=== PATIENT | female | born 1980 | race Caucasian/White ===

== ENCOUNTER 2016-10-30 22:12 | Emergency (ER) | payer OTHER ==
[~2016-10-30] VITALS: Ht 174 cm; Wt 116.4 kg
[~2016-10-30 22:12] MED LIST: BUPR-79 PO; HYDR-4330 PO; LEVE250T PO
[2016-10-30 22:21] VITALS: TEMP 36.9; Ht 174 cm; Wt 116.4 kg
[2016-10-30] MEDS ORDERED: OXYCODONE HCL IR 5 MG TAB (IMMEDIATE RELEASE) PO STA (22:33)
[2016-10-30] MEDS ORDERED: IBUP-1277 PO (22:42)
[2016-10-30] MEDS ORDERED: ASPI-563 PO (22:43)
[2016-10-30] MEDS ORDERED: AMOXICIL/CLAVU 875MG HOME PACK PO ONE (22:45)
[2016-10-30] MEDS ORDERED: LIDO/EPINEPHRINE/SOD BICARB 20 ML VIAL INFIL ONE (22:45)
[2016-10-30] MEDS ORDERED: ONDANSETRON 4MG OD TAB PO ONE (22:45)
--- NOTE | 2016-10-30 22:57 | DIAGNOSTIC IMAGING REPORT ---
LEFT FOREARM 2 VIEWS ROUTINE CLINICAL HISTORY: LEFT, DOG BITE trauma COMPARISON: None. DISCUSSION: Considerable soft tissue edema as well as soft tissue disruption is present in the region of the mid ulna. No well-defined acute bony abnormality. Small old avulsion from the ulnar styloid. IMPRESSION: Soft tissue edema and disruption. No acute bony abnormality. The above report was generated using voice recognition software. It may contain grammatical, syntax or spelling errors. Electronically signed by: Mario Meredith M.D. 10/30/2016 10:55 PM Dictated Date/Time: 10/30/2016 10:54 PM
[2016-10-30] MEDS ORDERED: AMOX875T PO (23:47)
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
[2016-10-30 23:57] VITALS: BP 108/80; PULSE 90; O2SAT 99
[2016-10-31] MEDS ORDERED: OXYCODONE IR HOME PACK PO ONE
== END 2016-10-30 23:57 | disposition home or self-care (01) ==
LOC: C.EDB 22:13 → C.EDC 23:57
DX: S51.852A Open bite of left forearm, initial encounter (principal); W54.0XXA Bitten by dog, initial encounter; Y92.009 Unspecified place in unspecified non-institutional (private) residence as the place of occurrence of the external cause; F17.210 Nicotine dependence, cigarettes, uncomplicated

== ENCOUNTER 2016-11-10 11:07 | Emergency (ER) | payer OTHER ==
[~2016-11-10] VITALS: Ht 172.7 cm; Wt 117.3 kg
[~2016-11-10 11:07] MED LIST changes: +AMOX875T PO; +ASPI-563 PO; +IBUP-1277 PO
[2016-11-10 11:10] VITALS: TEMP 36.5; Ht 172.7 cm; Wt 117.3 kg
[2016-11-10] MEDS ORDERED: VENL150T33 PO (11:22)
[2016-11-10] MEDS ORDERED: ST J1CAP PO (11:22)
[2016-11-10] MEDS ORDERED: VANCOMYCIN INJ 1,000 MG in SODIUM CHLORIDE 0.9% 250ML 250 ML IV STA (11:34)
[2016-11-10] MEDS ORDERED: CEFTRIAXONE SOD INJ 1 GM ADDVIAL IV STA (11:34)
--- NOTE | 2016-11-10 11:44 | EMERGENCY ROOM VISIT NOTE ---
History Report prepared by Rashiibravi: Mandie Lwe Under the Supervision of: Dr. Justen Galvin M.D. First contact with patient: 11:18 Chief Complaint: WOUND INFECTION Stated Complaint: PAIN, RED AND WARMNESS TO WOUND Nursing Triage Summary: Pt presents with wound to left forearm from a dog bite almost two weeks ago, sutures in place. Pt reports increased pain and redness, worse over the past 3- 4 days. Chills. Pt reports increased feeling of being tired and states, "There were pus sacks yesterdays." Pt states she finished course of oral abx. History of Present Illness The patient is a 36 year old female who presents to the Emergency Room with complaints of constant left arm pain from a dog bite wound that occurred 10 days ago. The patient notes that the pain is severe and has been increasing over the past 10 days. She describes the pain as stinging and tightness that hurts to the touch.The patient denies any fevers. She also notes that she was supposed to get the stitches out this week and that she was on antibiotics for the bite. She also noticed some pus discharge from the the site yesterday. The patient notes that she is on hydrocodone for a back injury and has been taking it to help with her symptoms from the wound and has found minimal relief. She has no allergies to any antibiotics. Source of History: patient Onset: 10 days ago Position: arm (left) Quality: other (stinging and tightness) Timing: constant Associated Symptoms: No fevers Review of Systems All systems have been listed, reviewed, and are negative other than those previously mentioned. Please see Additional Medical History Sheet. Past Medical & Surgical Medical Problems: (1) Closed head injury (2) DDD (degenerative disc disease), lumbar (3) HNP (herniated nucleus pulposus), lumbar (4) No Known Active Medical Problems (5) Rib contusion Surgical Problems: (1) H/O section (2) History of back surgery Family History FHx: cancer FHx: heart disease FHx: hypertension FHx: lung disease Social History Smoking Status: Never Smoker Smokeless Tobacco Use: Yes Alcohol Use: none Housing Status: lives with family Current/Historical Medications Scheduled Aspirin-Caffeine (Elise Back & Body 500-32.5 mg), 1 TAB PO UD Bupropion (Wellbutrin Sr), 150 MG PO BID Cephalexin Monohydrate (Keflex), 500 MG PO QID Levetiracetam (Keppra), 500 MG PO BID Margareth's Wort (Dilkon Perf (St Rowan Wort), 600 MG PO TID Sulfa/Trimethoprim (Bactrim Ds 800MG/160MG), 1 TAB PO BID Venlafaxine Hcl (Venlafaxine Hcl Er), 150 MG PO DAILY Scheduled PRN Hydrocodone-Acetaminophen (Lortab 5-325 mg), 1 TAB PO BID PRN for Pain Allergies Coded Allergies: Latex1 -Allergic Contact Dermititis (Verified Allergy, Unknown, RASH, 10/30) GETS RASH FROM RUBBER GLOVES Oxycodone (Verified Adverse Reaction, Unknown, GI SYMPTOMS, 09/14/15) Physical Exam Vital Signs Date Time Temp Pulse Resp B/P (MAP) Pulse Ox O2 Delivery O2 Flow Rate FiO2 11/10/16 14:39 75 16 124/65 98 Room Air 11/10/16 13:05 76 18 109/65 99 Room Air 11/10/16 11:10 36.5 82 18 126/82 98 Room Air Physical Exam GENERAL: Patient awake, alert, oriented x 3. Patient follows commands. Patient does not appear toxic. Patient is adequately hydrated and well- nourished. Patient is in mild distress. SKIN: No pallor, cyanosis or rash. Horseshoe shaped sutured laceration on the left arm with significant erythema and swelling. HEENT: Normal head, pupils equal, reactive to light and accommodation. LUNGS: Clear to auscultation. No wheezes, no rales, no rhonchi. HEART: No murmurs. No gallops. No rubs ABDOMEN: No masses, no rebound, no hepatomegaly or splenomegaly. EXTREMITIES: Horseshoe shaped sutured laceration on the left arm with significant erythema and swelling. HEENT: Normal head, pupils equal, reactive to light and accommodation. NEUROLOGIC: Cranial nerves II-XII within normal limits. No gross motor sensory function deficits. Intact distally. Medical Decision & Procedures Laboratory Results 11/10/16 11:48 Red Blood Count 4.05, Mean Corpuscular Volume 92.1, Mean Corpuscular Hemoglobin 29.1, Mean Corpuscular Hemoglobin Concent 31.6, Mean Platelet Volume 9.7, Neutrophils (%) (Auto) 68.7, Lymphocytes (%) (Auto) 19.2, Monocytes (%) (Auto) 7.1, Eosinophils (%) (Auto) 4.2, Basophils (%) (Auto) 0.6, Neutrophils # (Auto) 4.45, Lymphocytes # (Auto) 1.24, Monocytes # (Auto) 0.46, Eosinophils # (Auto) 0.27, Basophils # (Auto) 0.04 11/10/16 11:48 Test 11/10/16 11:48 White Blood Count 6.47 K/uL (4.8-10.8) Red Blood Count 4.05 M/uL (4.2-5.4) Hemoglobin 11.8 g/dL (12.0-16.0) Hematocrit 37.3 % (37-47) Mean Corpuscular Volume 92.1 fL (80-100) Mean Corpuscular Hemoglobin 29.1 pg (25-34) Mean Corpuscular Hemoglobin Concent 31.6 g/dl (32-36) Platelet Count 214 K/uL (130-400) Mean Platelet Volume 9.7 fL (7.4-10.4) Neutrophils (%) (Auto) 68.7 % Lymphocytes (%) (Auto) 19.2 % Monocytes (%) (Auto) 7.1 % Eosinophils (%) (Auto) 4.2 % Basophils (%) (Auto) 0.6 % Neutrophils # (Auto) 4.45 K/uL (1.4-6.5) Lymphocytes # (Auto) 1.24 K/uL (1.2-3.4) Monocytes # (Auto) 0.46 K/uL (0.11-0.59) Eosinophils # (Auto) 0.27 K/uL (0-0.5) Basophils # (Auto) 0.04 K/uL (0-0.2) RDW Standard Deviation 45.2 fL (36.4-46.3) RDW Coefficient of Variation 13.5 % (11.5-14.5) Immature Granulocyte % (Auto) 0.2 % Immature Granulocyte # (Auto) 0.01 K/uL (0.00-0.02) Anion Gap 6.0 mmol/L (3-11) Est Creatinine Clear Calc Drug Dose 135.5 ml/min Estimated GFR () 114.2 Estimated GFR (Non- 98.5 BUN/Creatinine Ratio 23.6 (10-20) Calcium Level 8.6 mg/dl (8.5-10.1) Laboratory results as stated above per my review. Medications Administered Medications (Trade) Dose Ordered Sig/Madison Route Start Time Stop Time Status Last Admin Dose Admin Oxycodone/ Acetaminophen (Percocet 5-325mg Tab) 1 tab NOW ONCE PO 11/10/16 11:45 11/10/16 11:46 DC 11/10/16 11:51 1 TAB Ceftriaxone Sodium (Rocephin Inj) 1 gm NOW STAT IV 11/10/16 11:34 11/10/16 11:39 DC 11/10/16 11:51 1 GM Vancomycin HCl 1000 mg/Sodium Chloride 270 ml @ 125 mls/hr NOW STAT IV 11/10/16 11:34 11/10/16 13:43 DC 11/10/16 12:12 125 MLS/HR Laboratory results as stated above per my review. ED Course 1119: Past medical records reviewed. The patient was evaluated in room C9. A complete history and physical examination was performed. 1134: Vancomycin HCL 1000mg/Sodium Chloride 270 ml @ 125 mls/hr, Rocephin Inj 1 gm IV. 1145: Oxycodone/Acetaminophen 1 tab PO 1425: I reevaluated the patient and she is resting comfortably. 1451: I reevaluated the patient and she states that her tetanus is up to date. 1458: Upon reevaluation, the patient appeared to have improvement of her symptoms. I discussed today's findings with the patient. She verbalized agreement of the treatment plan. The patient was discharged home. Medical Decision Differential diagnosis includes but is not limited to: dog bite, cellulitis, abscess. Patient has some swelling around the previously sutured. I removed half of the sutures. I attempted to express some pus very little discharge from the wound. It was cultured. In the meantime, she was placed on Rocephin and vancomycin. She will be discharged on Bactrim and Keflex. The patient's return in 24 hours to make sure that it is improving. She understands that she may require admission if it is not improving. [place] Drug Monitoring Program Search Results: patient reviewed within database, no issues identified Medication Reconcilliation Current Medication List: was personally reviewed by me Blood Pressure Screening Patient's blood pressure: Normal blood pressure Blood pressure disposition: Did not require urgent referral Impression Primary Impression: Wound infection Scribe Attestation The scribe's documentation has been prepared under my direction and personally reviewed by me in its entirety. I confirm that the note above accurately reflects all work, treatment, procedures, and medical decision making performed by me. Departure Information Dispostion Home / Self-Care Prescriptions Cephalexin Monohydrate (Keflex) 500 Mg Cap 500 MG PO QID, #40 CAP Prov: Justen Galvin M.D. 11/10/16 Sulfa/Trimethoprim (Bactrim Ds 800MG/160MG) Tab 1 TAB PO BID, #20 TAB Prov: Justen Galvin M.D. 11/10/16 Referrals Juan Burgos M.D. (PCP) Forms HOME CARE DOCUMENTATION FORM, IMPORTANT VISIT INFORMATION, WORK / SCHOOL INSTRUCTIONS Patient Instructions My [facility] Additional Instructions One Bactrim twice a day. Please take both doses by the time you go to bed tonight. 1 Keflex 4 times a day. Please take all 4 doses by the time and go to bed tonight. Recheck here tomorrow before 3 PM.
[2016-11-10] MEDS ORDERED: OXYCODONE/ACETAMINOPHEN 5-325 TAB PO ONE (11:45)
[2016-11-10 12:19] LABS: BASO % 0.6 %; BASO ABS # 0.04 K/uL (0-0.2); COMPLETE YES; EOS % 4.2 %; HEMATOCRIT 37.3 % (37-47); IG% 0.2 %; LYMPH % 19.2 %; LYMPH ABS # 1.24 K/uL (1.2-3.4); MEAN CELL VOLUME 92.1 fL (80-100); MEAN CORPUSCULAR HEMOGLOBIN 29.1 pg (25-34); MEAN CORPUSCULAR HGB CONC 31.6 g/dl (32-36); MEAN PLATELET VOLUME 9.7 fL (7.4-10.4); MONO % 7.1 %; NEUT % 68.7 %; PLATELET COUNT 214 K/uL (130-400); RED BLOOD COUNT 4.05 M/uL (4.2-5.4); WHITE BLOOD COUNT 6.47 K/uL (4.8-10.8)
[2016-11-10 12:38] LABS: BUN/CREATININE RATIO 23.6 (10-20); CALCIUM 8.6 mg/dl (8.5-10.1); CREATININE 0.78 mg/dl (0.60-1.20); POTASSIUM 4.1 mmol/L (3.5-5.1)
[2016-11-10 14:39] VITALS: BP 124/65; PULSE 75; O2SAT 98
[2016-11-10] MEDS ORDERED: SULF800T23 PO (14:51)
[2016-11-10] MEDS ORDERED: CEPH500C PO (14:51)
--- NOTE | 2016-11-15 11:07 | Pharmacy Progress Note ---
ED Pharmacist Culture FollowUp Date of Service: Nov 15, 2016. Patient's surface wound cx at dog bite site is growing rate quantity of CoN Staph - no sensitivity to follow. She was placed on Keflex 500mg PO QID + Bactrim DS 1 PO BID x 10 days which should provide adequate coverage of most pathogens associated with dog bite skin/soft tissue infection. This cx growing CoN Staph could reflect skin carloz - but if pathogenic the current abx tx are reasonable choices.
== END 2016-11-10 15:04 | disposition home or self-care (01) ==
LOC: C.EDB 11:09 → C.EDC 15:04
DX: T81.4XXA Infection following a procedure, initial encounter (principal); X58.XXXA Exposure to other specified factors, initial encounter; Z48.02 Encounter for removal of sutures; M51.26 Other intervertebral disc displacement, lumbar region; Z87.828 Personal history of other (healed) physical injury and trauma; Z98.890 Other specified postprocedural states; Z79.82 Long term (current) use of aspirin; Z79.899 Other long term (current) drug therapy; Z88.5 Allergy status to narcotic agent; Z91.040 Latex allergy status; Z80.9 Family history of malignant neoplasm, unspecified; Z82.49 Family history of ischemic heart disease and other diseases of the circulatory system

== ENCOUNTER 2019-04-04 06:39 | Inpatient (IN) ==
--- NOTE | 2019-03-28 15:42 | Anesthesiology Consultation ---
Date of Service March 28, 2019 Assessment & Plan Chart Review Chart Review: Acceptable Risk for Surgery and Patient NOT seen in Pre Admission Testing History Surgery Operation Date: 04/04/19 08:15 Proposed Procedures p L4-L5, L5-S1 Removal Implants; L4-L5, L5-S1 Posterior Lumbar Interbody Fusion - Mazin Butler DO Height/Weight Height: 5 ft 8.5 in Weight: 98.883 kg Allergies Allergy/AdvReac Type Severity Reaction Status Date / Time No Known Allergies Allergy Verified 03/05/19 11:03 Medications Home Medications Medication Instructions Recorded Confirmed Last Taken bupropion HCl 200 mg PO BID 08/19/18 03/05/19 08/19/18 hydrocodone-acetaminophen [[place]] 1 tab PO Q6H PRN #5 tab 08/19/18 Unknown metformin 1,000 mg PO BID 08/19/18 03/05/19 08/19/18 gabapentin 600 mg PO UD 03/05/19 03/05/19 Unknown lisdexamfetamine [Vyvanse] 70 mg PO QAM 03/05/19 03/05/19 Unknown oxycodone-acetaminophen 1 tab PO Q8H PRN 03/05/19 03/05/19 Unknown hydrocodone 10 mg-acetaminophen 1 tab PO Q6H PRN #40 tab 03/12/19 Unknown 325 mg tablet hydrocodone 10 mg-acetaminophen 1 tab PO Q6H PRN #40 tab 03/19/19 Unknown 325 mg tablet Past Medical History Medical History Anxiety and depression Bipolar disorder DDD (degenerative disc disease), lumbar (Resolved) HNP (herniated nucleus pulposus), lumbar (Resolved) Post traumatic stress disorder Restless leg syndrome Temporomandibular joint disorder Past Family History Family History Other No significant family history Past Surgical History Surgical History Fusion of spine LUMBAR History of bilateral tubal ligation History of section X 2 History of discectomy LUMBAR History of tonsillectomy and adenoidectomy Social History Smoking Status: Current every day smoker tobacco type: cigarettes Smoking cigarettes per day: 20 CIG DAILY Do You Dip or Chew Tobacco: No Hx Alcohol Use: No Hx Substance Use: No substance use type: does not use Testing Laboratory Results 03/25/19 WBC 6.12 H/H 12.4/38.7 PLATELETS 211 Chest X-Ray Date: 03/25/19 Findings: + NAD
--- NOTE | 2019-04-02 12:50 | History and Physical Report ---
DATE OF ADMISSION: 04/04/2019 CHIEF COMPLAINT: Back pain, lower extremity difficulty, paresthesias, numbness and tingling and poor ability to sit, walk and ambulate. HISTORY OF PRESENT ILLNESS: She has failure of her spinal implants. She is having revision surgery that I will be performing on her on the . It will be approximately 2 hours in length, I estimate. PAST MEDICAL HISTORY: Positive for anxiety, depression, bipolar disorder, restless legs syndrome. PAST SURGICAL HISTORY: Includes multiple spine surgeries, tubal ligation, discectomy on the spine. FAMILY HISTORY: Not significant. SOCIAL HISTORY: Minimal smoker. Feels safe at home. No alcohol abuse. REVIEW OF SYSTEMS: CONSTITUTIONAL: She denies any fevers, sweats, chills, any bowel and bladder issues. No pain, cough, or sneeze. CARDIAC: No chest pain, no shortness of breath. ABDOMEN: Denies any nausea, vomiting. Denies urgency, frequency. MUSCULOSKELETAL: Admits to back and lower extremity difficulty. OBJECTIVE: VITAL SIGNS: Stable, blood pressure 122/77, pulse 70, respiratory rate 16, afebrile. BMI of 32. HEENT: Pupils react to light and accommodation. Ear, nose and throat clear. CARDIAC: Normal S1, S2. LUNGS: Clear. ABDOMEN: Soft and nontender. Bowel sounds present. MUSCULOSKELETAL: She has pain with straight leg raising on the right, pain with straight leg raising on the left. She has pain with flexion and extension. No upper motor neuron issues. IMAGES: Demonstrate a back out of hardware. IMPRESSION: Failed hardware, lumbar spine. PLAN: Includes instructions, precautions, and surgery scheduling. She is being scheduled on 04/04/2019 for removal of implants L4-S1 and a PLIF L5-S1.
[~2019-04-04 06:39] MED LIST changes: -AMOX875T PO; -ASPI-563 PO; -BUPR-79 PO; +CEFAZOLIN 2000MG 2,000 MG/15 ML SYR IV SCH; -HYDR-4330 PO; -IBUP-1277 PO; -LEVE250T PO; +LR 15ML/HR IV SCH; +SODIUM CHLORIDE 0.9% 1,000 ML IV SCH
[2019-04-04] MEDS ORDERED: fentaNYL citrate 100 MCG/2 ML VIAL ONE (07:39)
[2019-04-04] MEDS ORDERED: MIDAZOLAM HCL 1 MG/ML 2ML VIAL ONE (07:39)
[2019-04-04] MEDS ORDERED: DEXAMETHASONE SOD INJ 4 MG/ML VIAL ONE (08:00)
[2019-04-04] MEDS ORDERED: ePHEDrine sulfate 50 MG/ML SYR ONE (08:00)
[2019-04-04] MEDS ORDERED: LARYING-O-JET KIT (LTA) ONE (08:00)
[2019-04-04] MEDS ORDERED: NEOSTIGMINE METHYLSULFATE 5 MG/5 ML SYR ONE (08:00)
[2019-04-04] MEDS ORDERED: GLYCOPYRROLATE 0.2 MG/ML VIAL ONE (08:00)
[2019-04-04] MEDS ORDERED: PROPOFOL IV EMULSION 10 MG/ML 20 ML VIAL IV ONE (08:00)
[2019-04-04] MEDS ORDERED: LIDOCAINE HCL 2% 2 ML VIAL/AMP(20MG/ML) INFIL ONE (08:00)
[2019-04-04] MEDS ORDERED: CISATRACURIUM BESYLATE IV SOLN 2 MG/ML 10 ML VIAL IV ONE (08:00)
[2019-04-04] MEDS ORDERED: ONDANSETRON INJ 2 MG/ML 2 ML VIAL ONE (08:00)
[2019-04-04] MEDS ORDERED: VANCOMYCIN HCL 1000MG/20ML VIAL ONE (08:04)
[2019-04-04] MEDS ORDERED: GELATIN SPONGE SZ 100 ONE (08:05)
[2019-04-04] MEDS ORDERED: THROMBIN FOR SOLN 20000 UNIT KIT ONE (08:05)
[2019-04-04] MEDS ORDERED: BACITRACIN INJ 50,000 UNIT VIAL ONE (08:05)
--- NOTE | 2019-04-04 08:11 | History & Physical Bridge Note ---
Date of Service April 04, 2019 History & Physical Bridge Note I have examined the patient, reviewed the History & Physical and in the interval since the performance of the History & Physical I have noted the following changes of clinical significance: no changes noted
[2019-04-04] MEDS ORDERED: HYDROmorphone INJ 2 MG/ML SYR/VIAL ONE (08:51)
[2019-04-04] MEDS ORDERED: LABETALOL HCL IV 5 MG/ML 20ML IV PRN (11:16)
[2019-04-04] MEDS ORDERED: PROMETHAZINE HCL 12.5 MG in SODIUM CHLORIDE 0.9% 50 ML IV PRN ×2 (11:16→12:55)
[2019-04-04] MEDS ORDERED: ATROPINE SULFATE 0.1 MG/ML 10ML SYR IV PRN (11:16)
[2019-04-04] MEDS ORDERED: ONDANSETRON INJ 2 MG/ML 2 ML VIAL IV PRN ×2 (11:16→12:55)
[2019-04-04] MEDS ORDERED: NALOXONE HCL 0.4 MG/1 ML VIAL/CARP IV PRN ×2 (11:16→12:55)
[2019-04-04] MEDS ORDERED: ePHEDrine sulfate 50 MG/ML AMP IV PRN (11:16)
[2019-04-04] MEDS ORDERED: FLUMAZENIL 0.1 MG/1 ML 10 ML VIAL IV PRN (11:16)
--- NOTE | 2019-04-04 11:22 | Post Operative Brief Note ---
PG Immediate Post Op with CF Date of Surgery April 04, 2019 Pre & Post Diagnosis Operation Date: 04/04/19 08:15 Pre-Op Diagnosis: Loosening Spinal Hardware Post-Op Diagnosis: Loosening Spinal Hardware I identified the patient and participated in the time-out.: Yes Procedure Operation Date: 04/04/19 08:15 Actual Procedures p Removal L4-S1 Instrumentation, Lumbar fusion L4-S1, use of Infuse and Duraseal(Not Applicable) - Mazin Butler DO Surgeon Mazin Butler DO Delivery Assistant Viktor minor Estimated Blood Loss 50 Findings Consistent with Post-Op Diagnosis Drains Junior Catheter and Hemovac Drain Disposition Accompanied Patient To Recovery: Yes Overlapping Procedure I was immediately available: during the entire case.
--- NOTE | 2019-04-04 11:30 | Operative Report ---
PG Post Operative Report Pre & Post Diagnosis Operation Date: 04/04/19 08:15 Pre-Op Diagnosis: Loosening Spinal Hardware; migration of interbody device Post-Op Diagnosis: Loosening Spinal Hardware; migration of interbody device I identified the patient and participated in the time-out.: Yes Procedure Operation Date: 04/04/19 08:15 Actual Procedures p Removal L4-S1 Instrumentation, Lumbar fusion L4-S1, use of Infuse and Duraseal(Not Applicable) - Mazin Butler DO Actual procedure: Removal of spinal implants L4, L5, S1 Next: Decompression of neural elements L4-L5 and S1 Next: Removal interbody device at L4-5 Next: Instrumentation L4-L5 and S1 lumbar spine. Combination of pedicle screws and a stephen [employer] Next: Bone grafting of the procedure and fusion L4-L5 and S1. 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 Junior catheter administered. Placed prone on the [place] table scrubbed and prepped and draped sterile. Timeout taken. Made a skin incision fashion incision carefully meticulously got down to the neural elements dissecting out over the spinous processes transverse processes and facet joints. We put in a deep self-retaining retractor. First we took out the spinal implants from L4-S1 we took out the screws at L4-L5 and S1 Next decompression of the involved elements compressing L4-5 L5-S1 foraminotomies partial facetectomies Then decompress the neural elements retracted the dura very carefully off the spinal implant or interbody cage at L4-5 interval. I did not see any true nerve injury nor I do not believe we injured her in the process. We decompressed the for nerve root fiber nerve root and S1 Then instrumented the spine safely getting pedicle screws and at sacrum L5 and L4 we went with larger screws 7.5 mm at the sacral area and the L5 area the L4 pedicle screw excepted a 6.5 mm diameter screw. We then irrigated thoroughly. We then grafted out of the transverse processes from L4-L5 and the sacrum Bone graft products used: Morselized autograft. And a product called infuse which is an osteogenic protein. We then areas over a Hemovac drain with 1 Vicryl suture we also closed over vancomycin powder 2-0 Vicryl used on the subcuticular layer over vancomycin powder. Nylon used on the skin surface Dressing applied and the patient returned to PACU improved stable condition No apparent operative complications Blood loss less than 100 cc Wound use was morselized autograft and infuse. I attest to the content of the Intraoperative Record and any orders documented therein. Any exceptions are noted below.
[2019-04-04] MEDS ORDERED: HYDROmorphone INJ 1 MG/ML SYRINGE ONE (11:34)
[2019-04-04] MEDS: HYDROmorphone INJ 1 MG/ML SYRINGE IV PRN ×4 (11:35→12:04)
[2019-04-04] MEDS ORDERED: KETOROLAC 30 MG/ML VIAL IV ONE (11:59)
[2019-04-04] MEDS ORDERED: KETOROLAC 30 MG/ML VIAL ONE (12:01)
--- NOTE | 2019-04-04 12:04 | Fluoroscopy Report ---
FL spine 1V any level HISTORY: 38 years-old Female L4-S1 REMOVAL IMPLANTS L4-S1 POSTERIOR LUMBAR INTERBODY FUSI number spi nal fusion COMPARISON: Lumbar spine radiographs 02/13/2019 TECHNIQUE: One lateral spot fluoroscopic image of the lumbar spine was obtained utilizing 10.3 second s fluoroscopy time FINDINGS: Posterior interbody stephen and screw fusion hardware extends from L4-S1. Spondylitic spurring is noted w ith alignment appearing satisfactory on this single image. IMPRESSION: Fluoroscopic assistance as above. Please see operative report for further details. ACT 112: Negative or not required by law. The above report was generated using voice recognition software. It may contain grammatical, syntax o r spelling errors. Electronically signed by: Ruperto Martínez M.D. 04/04/2019 12:02 PM
--- NOTE | 2019-04-04 12:18 | Anesthesiology Progress Note ---
Date of Service April 04, 2019 Anesthesia Post Procedure Vital Signs Vital Signs: Temp Pulse Pulse Resp BP BP Pulse Ox 04/04/19 11:22 36.6 C 78 14 114/63 100 04/04/19 07:15 37.1 C 81 20 132/82 96 Pain Intensity Lower Back: Pain Intensity: 8 Transfer of Care Handoff Completed per policy Notes Mental Status: alert / awake / arousable Patient Amnestic to Procedure: Yes Nausea / Vomiting: adequately controlled Pain: adequately controlled Airway Patency, RR, SpO2: stable & adequate BP & HR: stable & adequate Hydration State: stable & adequate Anesthetic Complications: no major complications apparent
[2019-04-04] MEDS ORDERED: DO NOT ADMINISTER FLU VACCINE PRN (12:55)
[2019-04-04] MEDS ORDERED: bisacodyL 10 MG SUPP PR PRN (12:55)
[2019-04-04] MEDS ORDERED: MAGNESIUM HYDROXIDE SUSP 30 ML UDC PO PRN (12:55)
[2019-04-04] MEDS ORDERED: FAMOTIDINE 20 MG TAB PO PRN (12:55)
[2019-04-04] MEDS ORDERED: ONDANSETRON 4 MG OD TAB PO PRN (12:55)
[2019-04-04] MEDS ORDERED: HYDROmorphone INJ 0.5 MG/0.5 ML SYR IV PRN (12:55)
[2019-04-04] MEDS ORDERED: ALUMINUM/MAGNESIUM SUSP 30 ML UDC PO PRN (12:55)
[2019-04-04] MEDS ORDERED: SOD PHOSPHATE/SOD BIPHOSPHATE ENEMA 132 ML BTL PR PRN (12:55)
[2019-04-04] MEDS ORDERED: DO NOT ADMINISTER PNEUMOCOCCAL VACCINE PRN (12:55)
[2019-04-04] MEDS ORDERED: ACETAMINOPHEN 1,000 MG/100 ML VIAL IV PRN (12:55)
[2019-04-04] MEDS: GABAPENTIN 600 MG TAB PO SCH ×2 (13:45→20:30)
[2019-04-04] MEDS: SODIUM CHLORIDE 0.9% 1000ML 1,000 ML IV SCH (13:46)
[2019-04-04] MEDS: OXYCODONE HCL IR 5 MG TAB (IMMEDIATE RELEASE) PO PRN ×2 (15:39→21:38)
[2019-04-04] MEDS: CEFAZOLIN 2000MG 2,000 MG/15 ML SYR IV SCH (16:11)
[2019-04-04] MEDS: KETOROLAC 30 MG/ML VIAL IV SCH (18:43)
[2019-04-04] MEDS: DOCUSATE SODIUM/SENNA 50/8.6MG TAB PO SCH (20:31)
[2019-04-05] MEDS: KETOROLAC 30 MG/ML VIAL IV SCH ×3 (00:03→12:26)
[2019-04-05] MEDS: CEFAZOLIN 2000MG 2,000 MG/15 ML SYR IV SCH (00:03)
[2019-04-05] MEDS: SODIUM CHLORIDE 0.9% 1000ML 1,000 ML IV SCH (02:23)
[2019-04-05] MEDS: OXYCODONE HCL IR 5 MG TAB (IMMEDIATE RELEASE) PO PRN ×4 (03:19→18:36)
[2019-04-05] MEDS: POLYETHYLENE (MIRALAX) 17 GM PACK PO SCH ×3 (06:07→17:16)
--- NOTE | 2019-04-05 07:13 | Orthopedic Progress Note ---
Date of Service April 05, 2019 Assessment & Plan (1) Spinal stenosis of lumbar region at multiple levels: Assessment: Revision spinal surgery. Doing well still in the short run Plan: Up and ambulatory today short walks is all that is needed. Tentative discharge home tomorrow Subjective Moderate complaints of pain paresthesias. Pain is controlled Physical Exam Physical Exam: Vital signs stable afebrile moves all 4 extremities Lungs clear Cardiac regular Results & Data Vital Signs (Past 12 Hours) Vital Signs Temp Pulse Pulse Resp BP Pulse Ox 04/05/19 03:20 74 124/74 04/05/19 03:14 37.0 C 74 16 98/55 L 98 04/04/19 22:59 36.9 C 66 16 102/64 98 04/04/19 19:51 36.6 C 68 16 107/69 97 PG Care Time/CCT Total # of Minutes Spent Total Time Spent with Patient: Total time spent is greater than 50% in coordination of care (as documented) at patient's floor/unit and/or counseling patient:
--- NOTE | 2019-04-05 07:51 | Anesthesiology Progress Note ---
Date of Service April 05, 2019 Anesthesia Post Procedure Vital Signs Vital Signs: Temp Pulse Pulse Pulse Pulse Resp BP 04/05/19 07:20 36.6 C 74 15 04/05/19 03:20 74 04/05/19 03:14 37.0 C 74 16 04/04/19 22:59 36.9 C 66 16 04/04/19 19:51 36.6 C 68 16 04/04/19 15:51 36.4 C L 70 16 04/04/19 14:25 77 16 04/04/19 13:42 64 16 04/04/19 13:10 36.6 C 91 H 16 04/04/19 12:40 36.6 C 66 18 04/04/19 12:26 70 14 04/04/19 12:25 67 14 108/57 L 04/04/19 12:22 36.6 C 04/04/19 12:21 65 14 04/04/19 12:20 65 14 106/62 04/04/19 12:16 70 14 04/04/19 12:15 67 14 106/59 L 04/04/19 12:11 87 17 04/04/19 12:10 94 H 16 90/72 L 04/04/19 12:06 73 14 04/04/19 12:05 71 14 108/56 L 04/04/19 12:01 68 14 04/04/19 12:00 90 16 117/64 04/04/19 11:56 78 14 04/04/19 11:55 72 14 107/56 L 04/04/19 11:51 69 14 04/04/19 11:50 67 14 106/55 L 04/04/19 11:48 73 14 111/60 04/04/19 11:46 81 14 04/04/19 11:45 78 14 90/46 L 04/04/19 11:41 88 13 04/04/19 11:40 76 14 111/59 L 04/04/19 11:36 82 14 04/04/19 11:35 84 11 L 115/64 04/04/19 11:31 86 12 04/04/19 11:30 77 14 114/62 04/04/19 11:26 93 H 17 04/04/19 11:25 75 15 107/65 04/04/19 11:23 77 14 04/04/19 11:22 36.6 C 78 78 14 114/63 BP Pulse Ox 04/05/19 07:20 128/72 98 04/05/19 03:20 124/74 04/05/19 03:14 98/55 L 98 04/04/19 22:59 102/64 98 04/04/19 19:51 107/69 97 04/04/19 15:51 107/69 98 04/04/19 14:25 100/57 L 98 04/04/19 13:42 109/69 99 04/04/19 13:10 106/50 L 100 04/04/19 12:40 104/63 97 04/04/19 12:26 98 04/04/19 12:25 98 04/04/19 12:22 100 04/04/19 12:21 99 04/04/19 12:20 99 04/04/19 12:16 99 04/04/19 12:15 99 04/04/19 12:11 100 04/04/19 12:10 98 04/04/19 12:06 99 04/04/19 12:05 99 04/04/19 12:01 99 04/04/19 12:00 100 04/04/19 11:56 99 04/04/19 11:55 98 04/04/19 11:51 99 04/04/19 11:50 100 04/04/19 11:48 99 04/04/19 11:46 100 04/04/19 11:45 100 04/04/19 11:41 100 04/04/19 11:40 100 04/04/19 11:36 99 04/04/19 11:35 99 04/04/19 11:31 100 04/04/19 11:30 99 04/04/19 11:26 100 04/04/19 11:25 100 04/04/19 11:23 100 04/04/19 11:22 114/63 100 Pain Intensity Lower Back: Pain Intensity: 4 Notes Mental Status: alert / awake / arousable and participated in evaluation Patient Amnestic to Procedure: Yes Nausea / Vomiting: adequately controlled Pain: adequately controlled Airway Patency, RR, SpO2: stable & adequate BP & HR: stable & adequate Hydration State: stable & adequate Anesthetic Complications: no major complications apparent and Pt Satisfied with anesthetic care
[2019-04-05] MEDS: BuPROPion XL 300 MG TABCR PO SCH (08:30)
[2019-04-05] MEDS: GABAPENTIN 600 MG TAB PO SCH ×3 (08:30→20:56)
[2019-04-05] MEDS ORDERED: Nursing to Pharmacy Communication ONE (14:09)
[2019-04-05] MEDS: METFORMIN HCL 500 MG TAB PO SCH (16:29)
[2019-04-05] MEDS: DOCUSATE SODIUM/SENNA 50/8.6MG TAB PO SCH (20:56)
[2019-04-06] MEDS: POLYETHYLENE (MIRALAX) 17 GM PACK PO SCH ×2 (01:00→06:37)
[2019-04-06] MEDS: OXYCODONE HCL IR 5 MG TAB (IMMEDIATE RELEASE) PO PRN ×3 (01:06→10:35)
[2019-04-06] MEDS: METFORMIN HCL 500 MG TAB PO SCH (07:40)
[2019-04-06] MEDS: GABAPENTIN 600 MG TAB PO SCH (07:40)
[2019-04-06] MEDS: BuPROPion XL 300 MG TABCR PO SCH (07:41)
--- NOTE | 2019-04-08 08:08 | Discharge Summary ---
HOSPITAL COURSE: Deborah had a very complicated revision lumbar surgery. She has done well. Minimal complaints. Basically uneventful course. No chest pain, shortness of breath, or confusion. Neurologically, she still has a deficit, but seems to be recovering. Images not required. ASSESSMENT: Status post reconstructive spine surgery. PLAN: We will discharge her home here this morning. Instructions, precautions and educations provided. Followup examination in the office in approximately 2 weeks.
== END 2019-04-06 10:44 | disposition home or self-care (01) | DRG 460 ==
LOC: ASU 06:39 → 3E 11:27

== ENCOUNTER 2019-05-29 12:15 | Observation (INO) ==
[2019-05-29] MEDS ORDERED: KETOROLAC 30 MG/ML VIAL IV STA (13:09)
[2019-05-29] MEDS ORDERED: SODIUM CHLORIDE 0.9% 1000ML 1,000 ML IV ONE ×2 (13:09→17:37)
--- NOTE | 2019-05-29 13:25 | Emergency Department Note ---
History of Present Illness General Chief complaint: Back Injury/Pain Stated complaint: REF BY DR, SURGERY ON Apr, LEAKING FLUID History of Present Illness Maximum Pain Intensity: 9 This patient is a 39-year-old female who presents to the emergency department ambulatory by private vehicle for evaluation of a substance leaking out of her back. This is been intermittently happening over the last 2 to 3 weeks.it has been particularly bad over the last day. The patient has a history of lumbar spine surgery on April 04 of this year. She was doing exercises today when her physical therapist noticed the drainage. She was sent here for evaluation. The patient also notes throbbing headaches, particularly when she goes from a lying to a sitting position. She is also felt intermittently dizzy. No fever or chills. No numbness or tingling. She is continuing to have pain into her left leg, which is not new. Home Medications Home Medications Medication Instructions Recorded Confirmed Type bupropion HCl 300 mg PO QAM 08/19/18 05/29/19 History metformin 1,000 mg PO BID 08/19/18 05/29/19 History Vyvanse 70 mg PO QAM 03/05/19 05/29/19 History methylprednisolone 4 mg tablets in 4 mg PO UD #1 pkt 05/28/19 05/29/19 Rx a dose pack gabapentin 800 mg PO TID 05/29/19 05/29/19 History vilazodone [Viibryd] 40 mg PO DAILY 05/29/19 05/29/19 History Allergies Allergy/AdvReac Type Severity Reaction Status Date / Time No Known Allergies Allergy Verified 05/29/19 14:53 Past Med/Surg History Medical History Anxiety and depression Bipolar disorder DDD (degenerative disc disease), lumbar (Resolved) HNP (herniated nucleus pulposus), lumbar (Resolved) Post traumatic stress disorder Restless leg syndrome Temporomandibular joint disorder Surgical History Fusion of spine LUMBAR History of bilateral tubal ligation History of section X 2 History of discectomy LUMBAR History of tonsillectomy and adenoidectomy Family History Other No significant family history Social History Preferred Language: [place] Communication Ability: Effective Costumer Assistant Required: No Beliefs That Will Affect Care: None marital status: Current Living Situation: Family Feels Safe at Home: Yes Smoking Status: Current every day smoker Tobacco Type: cigarettes ; Cigarettes Per Day: 20 CIG DAILY ; Second Hand Exposure: Yes ; Hx Alcohol Use: No Hx Substance Use: No Review of Systems A total of 10 systems reviewed and were otherwise negative Physical Exam Vital Signs Vital Signs - 24 hr 05/29/19 12:24 05/29/19 14:50 05/29/19 17:39 Temperature 36.9 C Temperature Source Oral Pulse Rate 88 Pulse Rate [Right Finger] 77 68 Respiratory Rate 16 20 18 Respiratory Effort / Characteristics Non-Labored Spontaneous Non-Labored Spontaneous Respiratory Depth Normal Normal Respiratory Pattern Regular Blood Pressure 123/64 Blood Pressure [Left Arm] 127/67 109/70 Blood Pressure Mean 83 Blood Pressure Mean [Left Arm] 87 83 Pulse Oximetry 100 97 98 Oxygen Delivery Method Room Air Room Air Sepsis Recent Fever Within 48 Hours No Sepsis New/Unexplained Change in Mental Status No Sepsis Action Taken by Nursing No Action Required 05/29/19 19:21 Temperature Temperature Source Pulse Rate Pulse Rate [Right Finger] Respiratory Rate Respiratory Effort / Characteristics Respiratory Depth Respiratory Pattern Blood Pressure Blood Pressure [Left Arm] Blood Pressure Mean Blood Pressure Mean [Left Arm] Pulse Oximetry Oxygen Delivery Method Room Air Sepsis Recent Fever Within 48 Hours Sepsis New/Unexplained Change in Mental Status Sepsis Action Taken by Nursing Constitutional WD/WN, vitals as above Eyes EOM intact bilaterally ENMT external ear and nose normal, oropharynx normal Neck trachea midline Respiratory normal respiratory effort, lungs clear to auscultation Cardiovascular RRR, no murmur, no edema Gastrointestinal (Abdomen) normal bowel sounds, soft, nontender, no hepatosplenomegaly Musculoskeletal no cyanosis or clubbing, extremities motor strength 5/5 Skin no rashes, warm and dry There is a 1 mm pinpoint defect in the skin noted over the incision on the lumbar spine area. There is a clear substance noted leaking from the area. Neurologic Alert and oriented x3. No focal motor deficits. Psychiatric Acting appropriately Course Course Patient was seen and examined Vital signs including blood pressure were reviewed medications list was verified with patient Labs were obtained, and a saline lock was established Case was discussed with radiology, orthopedics, my attending physician and neurosurgery at [facility]. The case was also discussed with pharmacy. [facility] do not feel comfortable [facility] the patient. I again reached out to the patient's orthopedic surgeon. He agreed to admit the patient for further work-up and treatment. I was called to the bedside as the patient was becoming itchy and had an erythematous rash after starting the IV antibiotics. These were immediately stopped. Her symptoms improved. She was given Solu-Medrol and Benadryl IV. She remained stable while in the emergency department. Consultations Consultation #1: Dr. Butler Consultation #2: Dr. Santiago-neuro [facility] Consultation #3: [facility] Administered Medications Gadobutrol (Gadavist 65ml) 8 ml IV ONCE PRN PRN Reason: Interaction Checking Stop: 06/02/19 14:29 Last Admin: 05/29/19 14:31 Dose: 8 ml Documented by: [id number] Vancomycin HCl 1,750 mg/ (Sodium Chloride) 535 mls @ 200 mls/hr IV NOW ONE Stop: 05/29/19 20:17 Last Infusion: 05/29/19 18:48 Dose: 0 mls/hr Documented by: [id number] Admin: 05/29/19 18:38 Dose: 200 mls/hr Documented by: [id number] Discontinued Medications Diphenhydramine HCl (Benadryl) 50 mg IV NOW STA Stop: 05/29/19 14:43 Last Admin: 05/29/19 14:48 Dose: 50 mg Documented by: [id number] Diphenhydramine HCl (Benadryl) 25 mg IV NOW STA Stop: 05/29/19 19:16 Last Admin: 05/29/19 19:19 Dose: 25 mg Documented by: Sodium Chloride (Nss 1000ml) 1,000 mls @ 999 mls/hr IV .Q1H1M ONE Stop: 05/29/19 14:09 Last Infusion: 05/29/19 17:39 Dose: 0 mls/hr Documented by: [id number] Admin: 05/29/19 13:55 Dose: 999 mls/hr Documented by: [id number] Cefepime HCl (Maxipime) 2,000 mg in 20 mls @ 5 mls/min IV NOW STA; Protocol Stop: 05/29/19 17:40 Last Admin: 05/29/19 18:38 Dose: 5 mls/min Documented by: [id number] Sodium Chloride (Nss 1000ml) 1,000 mls @ 999 mls/hr IV .Q1H1M ONE Stop: 05/29/19 18:37 Last Admin: 05/29/19 18:38 Dose: 999 mls/hr Documented by: [id number] Ketorolac Tromethamine (Toradol) 30 mg IV NOW STA Stop: 05/29/19 13:10 Last Admin: 05/29/19 13:55 Dose: 30 mg Documented by: [id number] Methylprednisolone (Solumedrol) 125 mg IV NOW STA Stop: 05/29/19 19:17 Last Admin: 05/29/19 19:20 Dose: 125 mg Documented by: Morphine Sulfate (Morphine Sulfate) 4 mg IV NOW STA Stop: 05/29/19 17:40 Last Admin: 05/29/19 18:38 Dose: 4 mg Documented by: [id number] Medical Decision Making Home Medications Current Medication List: was personally reviewed by me Laboratory Data Attestation: I reviewed the patient's lab results. Result diagrams: 05/29/19 13:13 05/29/19 13:13 Lab Results 05/29/19 05/29/19 05/29/19 Range/Units 13:12 13:12 13:13 WBC 5.04 (4.8-10.8) K/uL RBC 4.50 (4.2-5.4) M/uL Hgb 12.4 (12.0-16.0) g/dL Hct 38.8 (37-47) % MCV 86.2 (80-100) fL MCH 27.6 (25-34) pg MCHC 32.0 (32-36) g/dL RDW Std Deviation 45.0 (36.4-46.3) fL RDW Coeff of Pietro 14.4 (11.5-14.5) % Plt Count 267 (130-400) K/uL MPV 10.1 (7.4-10.4) fL Immature Gran % (Auto) 0.0 % Neut % (Auto) 50.6 % Lymph % (Auto) 36.5 % [place] % (Auto) 9.7 % Eos % (Auto) 1.8 % Baso % (Auto) 1.4 % Immature Gran # (Auto) 0.00 (0.00-0.02) K/uL Neut # (Auto) 2.55 (1.4-6.5) K/uL Lymph # (Auto) 1.84 (1.2-3.4) K/uL [place] # (Auto) 0.49 (0.11-0.59) K/uL Eos # (Auto) 0.09 (0-0.5) K/uL Baso # (Auto) 0.07 (0-0.2) K/uL Sodium (136-145) mmol/L Potassium (3.5-5.1) mmol/L Chloride (98-107) mmol/L Carbon Dioxide (21-32) mmol/L Anion Gap (3-11) BUN (7-18) mg/dl Creatinine (0.6-1.2) mg/dl Est Cr Clr Drug Dosing ml/min Est GFR ( Amer) Est GFR (Non-Af Amer) BUN/Creatinine Ratio (10-20) Glucose (70-99) mg/dl Calcium (8.5-10.1) mg/dl Total Bilirubin (0.2-1) mg/dl AST (15-37) U/L ALT (12-78) U/L Alkaline Phosphatase (45-117) U/L Total Protein (6.4-8.2) gm/dl Albumin (3.4-5.0) gm/dl Globulin (2.5-4.0) gm/dl Albumin/Globulin Ratio (0.9-2) Urine Color Yellow Urine Appearance Clear (Clear) Urine pH 5.0 (4.5-7.5) Ur Specific [place] 1.016 (1.000-1.030) Urine Protein Negative (Negative) Urine Glucose (UA) Negative (Negative) Urine Ketones Negative (Negative) Urine Blood Negative (Negative) Urine Nitrite Negative (Negative) Urine Bilirubin Negative (Negative) Urine Urobilinogen Negative (Negative) Ur Leukocyte Esterase Negative (Negative) POC Ur Test NEG (NEG) 05/29/19 Range/Units 13:13 WBC (4.8-10.8) K/uL RBC (4.2-5.4) M/uL Hgb (12.0-16.0) g/dL Hct (37-47) % MCV (80-100) fL MCH (25-34) pg MCHC (32-36) g/dL RDW Std Deviation (36.4-46.3) fL RDW Coeff of Pietro (11.5-14.5) % Plt Count (130-400) K/uL MPV (7.4-10.4) fL Immature Gran % (Auto) % Neut % (Auto) % Lymph % (Auto) % [place] % (Auto) % Eos % (Auto) % Baso % (Auto) % Immature Gran # (Auto) (0.00-0.02) K/uL Neut # (Auto) (1.4-6.5) K/uL Lymph # (Auto) (1.2-3.4) K/uL [place] # (Auto) (0.11-0.59) K/uL Eos # (Auto) (0-0.5) K/uL Baso # (Auto) (0-0.2) K/uL Sodium 139 (136-145) mmol/L Potassium 3.6 (3.5-5.1) mmol/L Chloride 109 H (98-107) mmol/L Carbon Dioxide 25 (21-32) mmol/L Anion Gap 5.0 (3-11) BUN 13 (7-18) mg/dl Creatinine 0.77 (0.6-1.2) mg/dl Est Cr Clr Drug Dosing 111.3 ml/min Est GFR ( Amer) 113.5 Est GFR (Non-Af Amer) 97.9 BUN/Creatinine Ratio 17.2 (10-20) Glucose 81 (70-99) mg/dl Calcium 9.2 (8.5-10.1) mg/dl Total Bilirubin 0.2 (0.2-1) mg/dl AST 8 L (15-37) U/L ALT 15 (12-78) U/L Alkaline Phosphatase 89 (45-117) U/L Total Protein 7.7 (6.4-8.2) gm/dl Albumin 3.5 (3.4-5.0) gm/dl Globulin 4.2 H (2.5-4.0) gm/dl Albumin/Globulin Ratio 0.8 L (0.9-2) Urine Color Urine Appearance (Clear) Urine pH (4.5-7.5) Ur Specific [place] (1.000-1.030) Urine Protein (Negative) Urine Glucose (UA) (Negative) Urine Ketones (Negative) Urine Blood (Negative) Urine Nitrite (Negative) Urine Bilirubin (Negative) Urine Urobilinogen (Negative) Ur Leukocyte Esterase (Negative) POC Ur Test (NEG) Imaging Data Attestation: I personally reviewed and interpreted this imaging study as follows: Radiologist's Impression: MRI with and without lumbar spine IMPRESSION: 1. Postsurgical changes as described above 2. 33 x 19 x 17 mm fluid collection abutting the posterior aspect of the thecal sac at the L 4-5 level 3. 13 x 2.4 x 1.5 centimeter midline subcutaneous fluid collection. There is an equivocal incomplete tract connecting this fluid collection with the fluid collection posterior to the thecal sac. Diagnostic considerations therefore include postsurgical seroma versus pseudomeningocele. ACT 112: Negative or not required by law. Electronically signed by: Rogelio Dominguez M.D. 05/29/2019 2:49 PM Dictated: 05/29/19 1439 Transcribed: 05/29/19 1439 [facility] Narrative Differential diagnosis: CSF leak, infectious etiology, seroma, positional headaches, tension headache, migraine headache, among others This patient is a 39-year-old female who presents to the emergency department complaining of a substance leaking from her back. On exam, she did have a pinpoint defect in the skin that appeared to be leaking a fairly clear subst ance. There is no surrounding erythema. The patient was afebrile. Given her history of recent surgery, a full work-up was performed including labs and imaging. Imaging was consistent with a possible pseudomeningocele versus seroma. This case was discussed with multiple providers as noted above. Her orthopedic surgeon recommended that the patient be transferred for neurosurgery. Neurosurgery at [facility] was consulted. They recommended transfer. Unfortunately, they did not have any beds this evening. For this reason, I reached out to the hospitalist service. They did not feel comfortable admitting the patient. Ultimately, the patient's orthopedic surgeon will observe the patient overnight. She will be covered with antibiotics. The patient was comfortable with this plan. She will ultimately be transferred for neurosurgical care. Impression & Plan Pseudomeningocele, acquired Discharge Plan Visit Data Chief Complaint: Back Injury/Pain Stated Complaint: REF BY DR, SURGERY ON Apr, LEAKING FLUID ED Provider: Joey Whittaker ED Midlevel Provider: Meryl Strauss Discharge Problem: Pseudomeningocele, acquired Patient Disposition: Transfer Acute Care Hospital Condition: Fair Forms Stand Alone Forms: My [facility] Prescriptions Prescriptions: No Action methylprednisolone 4 mg tablets,dose pack 4 mg PO UD Qty: 1 RF: 0 bupropion HCl 200 mg tablet sustained-release 12 hr 300 mg PO QAM RF: 0 metformin 1,000 mg tablet 1,000 mg PO BID RF: 0 Vyvanse 70 mg Capsule 70 mg PO QAM RF: 0 gabapentin 800 mg tablet 800 mg PO TID RF: 0 Viibryd 40 mg tablet 40 mg PO DAILY RF: 0 Referrals Referrals: Inge Whatley DO [Primary Care Provider] -
[2019-05-29 13:27] LABS: Basophils # (auto) 0.07 K/uL (0-0.2); Basophils % (auto) 1.4 %; Eosinophils # (auto) 0.09 K/uL (0-0.5); Eosinophils % (auto) 1.8 %; Hematocrit (blood only) 38.8 % (37-47); Hemoglobin 12.4 g/dL (12.0-16.0); Lymphocytes # (auto) 1.84 K/uL (1.2-3.4); Lymphocytes % (auto) 36.5 %; Mean Corpuscular Hemoglobin 27.6 pg (25-34); Mean Corpuscular Volume 86.2 fL (80-100); Mean Platelet Volume 10.1 fL (7.4-10.4); Monocytes # (auto) 0.49 K/uL (0.11-0.59); Monocytes % (auto) 9.7 %; Neutrophils # (auto) 2.55 K/uL (1.4-6.5); Neutrophils % (auto) 50.6 %; Platelet Count 267 K/uL (130-400); RDW Coefficient of Variation 14.4 % (11.5-14.5); White Blood Count 5.04 K/uL (4.8-10.8)
[2019-05-29 13:36] LABS: Appearance Urine Clear (Clear); Bilirubin Urine Negative (Negative); Blood Urine Negative (Negative); Color Urine Yellow; Glucose Urine UA Negative (Negative); Ketones Urine Negative (Negative); Leukocyte Esterase Urine Negative (Negative); Nitrite Urine Negative (Negative); Protein Urine Negative (Negative); Specific Gravity Urine 1.016 (1.000-1.030); Urobilinogen Urine Negative (Negative)
[2019-05-29 13:44] LABS: Albumin Level 3.5 gm/dl (3.4-5.0); BUN Creatinine Ratio 17.2 (10-20); Calcium 9.2 mg/dl (8.5-10.1); Creatinine Clr Calc Pharmacy 111.3 ml/min; Est GFR (African American) 113.5; Est GFR (Non-African American) 97.9; Potassium 3.6 mmol/L (3.5-5.1)
[2019-05-29 13:46] LABS: Albumin Globulin Ratio 0.8 (0.9-2); Bilirubin,Total 0.2 mg/dl (0.2-1); Globulin 4.2 gm/dl (2.5-4.0); Total Protein 7.7 gm/dl (6.4-8.2)
[2019-05-29] MEDS ORDERED: GADOBUTROL 65ML VIAL IV PRN (14:30)
[2019-05-29] MEDS ORDERED: DiphenhydrAMINE HCL 50 MG/ML VIAL IV STA ×2 (14:42→19:15)
--- NOTE | 2019-05-29 14:51 | Magnetic Resonance Report ---
MR lumbar spine wo/w con CLINICAL HISTORY: drainage from lumbar area sx 04/04/19 TECHNIQUE: Sagittal and axial T1, T2 and STIR images were obtained. Images were acquired before and a fter the administration of 8 cc of intravenous Gadavist. COMPARISON STUDY: March 2015 OBSERVATIONS: The vertebral bodies and posterior elements appear intact. There is no abnormal bony signal present t o suggest a marrow replacement process. L1-2: No disc protrusions or extrusions. No evidence of spinal canal or neural foraminal compromise. L2-3: No disc protrusions or extrusions. No evidence of spinal canal or neural foraminal compromise. L3-4: There is an annular fissure and mild disc bulge. There is no significant spinal or foraminal st enosis L4-5: There are postsurgical changes of a discectomy and interbody fusion. There are right-sided L4 a nd L5 pedicle screws. There are postlaminectomy changes. There is enhancing soft tissue surrounding t he right L5 nerve root consistent with postsurgical epidural fibrosis. There is a fluid collection lo cated posterior to the thecal sac measuring 33 x 19 x 17 mm. There is no significant spinal stenosis L5-S1: There are postsurgical changes of a discectomy and interbody fusion. There are postlaminectomy changes. There is a right S1 pedicle screw. There is no significant spinal or foraminal stenosis. Th ere is postsurgical enhancement of the posterior soft tissues. There is a fluid collection posterior to the thecal sac as well as described on the prior level. The conus medullaris and cauda equina appear normal. There is a subcutaneous rim-enhancing midline fluid collection measuring 13 x 2.4 x 1.5 cm. It is not possible to determine whether this is infected. This appears to communicate with the skin. There is also a linear track which comes in close continuity with the fluid collection located posterior to th e thecal sac. This reason a pseudomeningocele cannot be excluded. IMPRESSION: 1. Postsurgical changes as described above 2. 33 x 19 x 17 mm fluid collection abutting the posterior aspect of the thecal sac at the L 4-5 leve l 3. 13 x 2.4 x 1.5 centimeter midline subcutaneous fluid collection. There is an equivocal incomplete tract connecting this fluid collection with the fluid collection posterior to the thecal sac. Diagnos tic considerations therefore include postsurgical seroma versus pseudomeningocele. ACT 112: Negative or not required by law. Electronically signed by: Rogelio Dominguez M.D. 05/29/2019 2:49 PM
[2019-05-29] MEDS ORDERED: VANCOMYCIN CONSULT ACTIVE PRN ×2 (17:37→19:42)
[2019-05-29] MEDS ORDERED: CEFEPIME 2,000 MG/20 ML VIAL IV STA (17:37)
[2019-05-29] MEDS ORDERED: VANCOMYCIN HCL 1,750 MG in SODIUM CHLORIDE 0.9% 500 ML IV ONE (17:37)
[2019-05-29] MEDS ORDERED: MoRPHine SULFATE 4 MG/ML 1 ML CARP\\VIAL IV STA (17:39)
--- NOTE | 2019-05-29 18:41 | Emergency Department Note ---
ED Visit Note Patient was seen by our PA/MOTION STUDY ENGINEER. I was involved in the patient's care and did evaluate the patient myself. I was involved in the care throughout the ER stay. Patient is being transferred to [facility]. We are awaiting bed assignment. The patient may need to be hospitalized at our facility until a bed becomes available. The appropriate paperwork for transfer was completed and signed .
[2019-05-29] MEDS ORDERED: methylPREDNISolone 125 MG/2 ML VIAL IV STA (19:16)
--- NOTE | 2019-05-29 19:26 | History & Physical Report ---
Date of Service May 29, 2019 Assessment & Plan (1) Pseudomeningocele, acquired: Images: Evidence of fluid collection in the posterior aspect lumbar spine consistent with either a seroma or pseudomeningocele Assessment: Pseudomeningocele lumbar spine fluid collection seroma, continue le ft lower extremity difficulties Plan: I felt she was in best hands with a neurosurgeon which we do not have here at [facility]. We are awaiting transfer for definitive care and more than likely surgical intervention History of Present Illness Chief Complaint: Reason for consultation: Is an onset of a spinal headache or apparent spinal headache. Long with a draining sinus from the lumbar spine wound. History: Deborah is a delightful patient I have known for several years. 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 It was giving her significant pain that time I felt revision strategies were required particularly on the significance of the posterior migration of the cage implant. She was taken to surgery for revision of lumbar spine surgery. Over the case fairly well in the tedious nature of taking out the spinal implant was embedded in her dura underneath the axilla of the nerve root . We stabilized her spine with a pedicle screw construct she did moderately well from that surgery. Unfortunately we never were able to eradicate her pain or lower extremity her back pain was markedly improved. Fortunately she had no neurological deficit or weakness and that is also the case this evening. She had excellent care pre-and postop by her family physician Dr. Whatley. Primary Care Provider: Inge Whatley, DO History: Deborah is making very minimal progress with physical therapy and the draining sinus in her lumbar spine wound progressed significantly as of today. Her physical therapist felt it was paramount that she goes to the emergency room setting which is very appropriate. I was called mid afternoon today's date 29 May with a concerning MRI report a possible pseudomeningocele and definitely a fluid collection which I was able to see on the MRI scan. I felt with this pathology she would be in the best hands of experience neurosurgeon and thus we worked on the transfer. Neurosurgeon [facility] was gracious enough to accept the case. I am admitting her observation status till a bed is available at [facility] for the appropriate transfer Allergies Allergy/AdvReac Type Severity Reaction Status Date / Time No Known Allergies Allergy Verified 05/29/19 14:53 Home Medications Home Medications Medication Instructions Recorded Confirmed Type bupropion HCl 300 mg PO QAM 08/19/18 05/29/19 History metformin 1,000 mg PO BID 08/19/18 05/29/19 History Vyvanse 70 mg PO QAM 03/05/19 05/29/19 History methylprednisolone 4 mg tablets in 4 mg PO UD #1 pkt 05/28/19 05/29/19 Rx a dose pack gabapentin 800 mg PO TID 05/29/19 05/29/19 History vilazodone [Viibryd] 40 mg PO DAILY 05/29/19 05/29/19 History Past Med/Surg History Medical History Anxiety and depression Bipolar disorder DDD (degenerative disc disease), lumbar (Resolved) HNP (herniated nucleus pulposus), lumbar (Resolved) Post traumatic stress disorder Restless leg syndrome Temporomandibular joint disorder Surgical History Fusion of spine LUMBAR History of bilateral tubal ligation History of section X 2 History of discectomy LUMBAR History of tonsillectomy and adenoidectomy Family History Other No significant family history Social History Preferred Language: [place] Communication Ability: Effective 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 Beliefs That Will Affect Care: None marital status: Current Living Situation: Family Feels Safe at Home: Yes Smoking Status: Current every day smoker Tobacco Type: cigarettes ; Cigarettes Per Day: 20 CIG DAILY ; Second Hand Exposure: Yes ; Hx Alcohol Use: No Hx Substance Use: No Review of Systems Review of Systems: Negative for fever sweats chills feeling of malaise Does have occasional headaches not overly positional related Denies any blurred vision double vision No chest pain shortness of breath No bowel bladder consequences She has musculoskeletal back pain with no neurosensory deficit but significant subjective description of pain Skin is intact for the most part the very distal aspect of her wound no bigger than 1 or 2 mm small draining sinus Physical Exam Physical Exam: Pupils reactive light and accommodation Lungs clear to auscultation Abdomen soft and nontender No motor loss no reflex changes No hyperreflexia Moderate back pain significant left-sided leg pain No apparent depression or lymphadenopathy Results & Data Vital Signs (Past 12 Hours) Vital Signs Temp Pulse Pulse Resp BP BP Pulse Ox 05/29/19 17:39 68 18 109/70 98 05/29/19 14:50 77 20 127/67 97 05/29/19 12:24 36.9 C 88 16 123/64 100 Code Status & VTE Plan VTE Prophylaxis Plan VTE Prophylaxis will be ordered: Yes PG Care Time/CCT Total # of Minutes Spent Total Time Spent with Patient: Total time spent is greater than 50% in coordination of care (as documented) at patient's floor/unit and/or counseling patient: Coding Level of Care Code 29606 OBS Care - Level 3 Diagnoses Pseudomeningocele, acquired G96.19
[2019-05-29] MEDS ORDERED: OXYCODONE HCL IR 5 MG TAB (IMMEDIATE RELEASE) PO PRN (19:42)
[2019-05-29] MEDS ORDERED: CEFEPIME CONSULT ACTIVE PRN (19:42)
[2019-05-29] MEDS: LACTATED RINGER'S 1,000 ML IV SCH (20:53)
[2019-05-29] MEDS: GABAPENTIN 800 MG TAB PO SCH (20:53)
[2019-05-29] MEDS: HYDROmorphone INJ 2 MG/ML SYR/VIAL IV PRN (22:07)
[2019-05-30] MEDS: HYDROmorphone INJ 2 MG/ML SYR/VIAL IV PRN ×2 (05:37→21:45)
--- NOTE | 2019-05-30 07:41 | Orthopedic Progress Note ---
Date of Service May 30, 2019 Assessment & Plan (1) Pseudomeningocele, acquired: Assessment:Wound drainage lumbar spine possible Pseudomeningocele Plan: Transfer to a higher level of care Subjective Still complains of back pain lower extremity difficulty. No apparent spinal headache at this moment no apparent neurological deficits Review of Systems Review of Systems: No fever sweats chills No bowel bladder incontinence Physical Exam Physical Exam: Extremity pain but no weakness Vital signs stable afebrile , No chest pain shortness of breath lungs clear Extremities intact with adequate motor strength no deficit Results & Data ([facility]) Vital Signs (Past 12 Hours) Vital Signs Temp Pulse Resp BP Pulse Ox 05/29/19 23:30 36.6 C 74 16 105/65 97 05/29/19 20:38 36.9 C 68 16 115/77 100 PG Care Time/CCT Total # of Minutes Spent Total Time Spent with Patient: Total time spent is greater than 50% in coordination of care (as documented) at patient's floor/unit and/or counseling patient: Coding Level of Care Code 49768 Subseq Obs Care Lvl 1 Diagnoses Pseudomeningocele, acquired G96.19
[2019-05-30] MEDS: BuPROPion XL 300 MG TABCR PO SCH (09:30)
[2019-05-30] MEDS: GABAPENTIN 800 MG TAB PO SCH ×3 (09:30→21:38)
[2019-05-30] MEDS: METFORMIN HCL 500 MG TAB PO SCH ×2 (09:30→17:10)
[2019-05-30] MEDS: OXYCODONE HCL IR 5 MG TAB (IMMEDIATE RELEASE) PO PRN ×2 (10:44→20:05)
[2019-05-30] MEDS: LACTATED RINGER'S 1,000 ML IV SCH (15:55)
[2019-05-30] MEDS ORDERED: Nursing to Pharmacy Communication ONE (19:46)
[2019-05-30] MEDS ORDERED: PATIENT'S OWN CONTROLLED MED PO SCH (21:00)
[2019-05-30] MEDS ORDERED: VYVANSE 70 MG PO SCH (21:00)
[2019-05-30] MEDS: VILAZODONE 40 MG PO SCH (21:39)
[2019-05-31] MEDS: HYDROmorphone INJ 2 MG/ML SYR/VIAL IV PRN ×3 (05:43→17:51)
[2019-05-31] MEDS: METFORMIN HCL 500 MG TAB PO SCH ×2 (08:15→17:47)
[2019-05-31] MEDS: BuPROPion XL 300 MG TABCR PO SCH (08:39)
[2019-05-31] MEDS: GABAPENTIN 800 MG TAB PO SCH ×2 (08:39→13:21)
[2019-05-31] MEDS: VILAZODONE 40 MG PO SCH (08:39)
[2019-05-31] MEDS: OXYCODONE HCL IR 5 MG TAB (IMMEDIATE RELEASE) PO PRN ×2 (08:42→14:34)
[2019-05-31] MEDS: LACTATED RINGER'S 1,000 ML IV SCH (11:29)
[2019-05-31] MEDS ORDERED: Nursing to Pharmacy Communication ONE (13:26)
[2019-05-31] MEDS ORDERED: PATIENT'S OWN CONTROLLED MED PO SCH (14:00)
[2019-05-31] MEDS ORDERED: VYVANSE 70 MG PO SCH (14:00)
[2019-05-31 17:49] VITALS: PULSE 80; TEMP 98.1; O2SAT 97
[2019-05-31 18:16] VITALS: BP 107/67
--- NOTE | 2019-06-05 18:33 | Discharge Summary ---
Date of Service June 05, 2019 Admission HPI Per Admitting Provider History: Deborah is making very minimal progress with physical therapy and the draining sinus in her lumbar spine wound progressed significantly as of today. Her physical therapist felt it was paramount that she goes to the emergency room setting which is very appropriate. I was called mid afternoon today's date 29 May with a concerning MRI report a possible pseudomeningocele and definitely a fluid collection which I was able to see on the MRI scan. I felt with this pathology she would be in the best hands of experience neurosurgeon and thus we worked on the transfer. Neurosurgeon [facility] was gracious enough to accept the case. I am admitting her observation status till a bed is available at [facility] for the appropriate transfer Admission Exam Per Admitting Provider Principal Diagnosis Pseudomeningocele and draining lumbar spine wound Discharge Exam Alert oriented no terrible distress and conversant HEENT examination essentially normal Lungs clear Abdomen soft nontender No neurological deficit Wound still demonstrates drainage Discharge Data Allergies Allergy/AdvReac Type Severity Reaction Status Date / Time cefepime [From Maxipime] Allergy Rash Verified 05/29/19 23:02 ketorolac [From Toradol] Allergy Unknown Verified 05/29/19 23:02 vancomycin Allergy Rash Verified 05/29/19 23:02 Consultations 05/29/19 17:13 ED Decision to Admit Stat Ordered Studies 05/29/19 13:10 MR lumbar spine wo/w con Stat Hospital Course (1) Pseudomeningocele, acquired: Deborah had a fairly uneventful hospital course. She was admitted to my service waiting transfer to [facility] for a pseudomeningocele. There were no significant complications or significant problems except for bed placement (2) Spinal stenosis of lumbar region at multiple levels: Total Time Total Time Spent Total Time Spent (In Minutes): 30 minutes Discharge Plan Discharge Items Patient Disposition: Transfer Acute Care Hospital Reason For Visit: DRAINING WOUND LUMBAR SPINE Discharge Diagnosis: As above Condition on Discharge: Fair Activity: As commented below Activity Comment: Rest and recover until definitive surgery Bathing: Keep incision dry Non-emergency contact: Primary Care Provider Call non-emergency contact if: you have any medication questions Follow-up/Referrals: Inge Whatley DO [Primary Care Provider] - Diet: Regular Addtl Attending Provider Instructions: Follow-up as needed Pending Studies at Discharge: Yes Studies:: MRI scan lumbar spine and plain x-rays if available Stand-Alone Forms: [facility] Skilled Items Patient informed of condition?: Yes DNR: No Discharge Level of Care: Other Communicable Disease: No Discharge Prognosis: Stable Lines: Peripheral IV Urinary Catheter: No Medications and DC Order Prescriptions: Continued methylprednisolone 4 mg tablets,dose pack 4 mg PO UD Qty: 1 RF: 0 bupropion HCl 200 mg tablet sustained-release 12 hr 300 mg PO QAM RF: 0 metformin 1,000 mg tablet 1,000 mg PO BID RF: 0 Vyvanse 70 mg Capsule 70 mg PO QAM RF: 0 gabapentin 800 mg tablet 800 mg PO TID RF: 0 Viibryd 40 mg tablet 40 mg PO DAILY RF: 0 Discharge Orders: Discharge Order (Routine); Ordered 05/29/19 Ordered By: Mazin Butler Admission Data Admit Date/Time: 05/29/19 18:22 Attending Provider: Mazin Butler Admit Provider: Mazin Butler Primary Care Provider: Inge Whatley Other Providers: Mazin Butler Other Interventions: Discharge Summary Assessment (RN) Last Done: 05/31/19 19:13 DC Date/Time DO NOT enter until pt leaves facility: 05/31/19 19:37 Coding Level of Care Code D/C Day Management <30 mins Diagnoses Pseudomeningocele, acquired G96.19 Spinal stenosis of lumbar region at multiple levels M48.061
== END 2019-05-31 19:37 | disposition short-term general hospital (02) ==
LOC: 3W 12:15 → ED 12:15 → 3W 19:21
DX: M26.609 Unspecified temporomandibular joint disorder, unspecified side; Z88.6 Allergy status to analgesic agent; Z88.8 Allergy status to other drugs, medicaments and biological substances; G97.82 Other postprocedural complications and disorders of nervous system; G25.81 Restless legs syndrome; Z79.84 Long term (current) use of oral hypoglycemic drugs; Z79.899 Other long term (current) drug therapy; M48.061 Spinal stenosis, lumbar region without neurogenic claudication; Z88.1 Allergy status to other antibiotic agents; F43.10 Post-traumatic stress disorder, unspecified; F17.210 Nicotine dependence, cigarettes, uncomplicated